=== PATIENT | male | born 1945 | race Caucasian/White ===

== ENCOUNTER 2017-09-18 06:32 | Inpatient (IN) | payer MEDICARE, BC ==
[2017-09-18] MEDS ORDERED: TOBRAMYCIN 1.2 GM POWDER (06:49)
[2017-09-18] MEDS ORDERED: METOCLOPRAMIDE 10 MG INJ (07:00)
[2017-09-18] MEDS: GABAPENTIN 300 MG CAP PO ×2 (07:17→21:10)
[2017-09-18] MEDS: traMADol 50 MG TAB PO (07:17)
[2017-09-18] MEDS: DEXAMETHASONE 1 MG TAB PO (07:17)
[2017-09-18] MEDS ORDERED: PROPOFOL 20 ML (08:06)
[2017-09-18] MEDS ORDERED: ROCURONIUM 50 MG INJ (08:06)
[2017-09-18] MEDS ORDERED: CEFAZOLIN 1 GM INJ (08:07)
[2017-09-18] MEDS ORDERED: ROPIVACAINE 0.5 % 30 ML VIAL (08:07)
[2017-09-18] MEDS ORDERED: DEXAMETHASONE 4 MG/ML 1 ML INJ (08:07)
[2017-09-18] MEDS ORDERED: FENTAnyl 50 MCG/ML VIAL (08:07)
[2017-09-18] MEDS ORDERED: KETOROLAC 30 MG INJ (08:07)
[2017-09-18] MEDS ORDERED: MIDAZOLAM 1 MG/ML 2 ML INJ (08:07)
[2017-09-18] MEDS ORDERED: ONDANSETRON 4 MG INJ (08:07)
[2017-09-18] MEDS ORDERED: ACETAMINOPHEN 1000MG/100ML IV 100 ML (08:59)
[2017-09-18] MEDS ORDERED: SUGAMMADEX SODIUM 200 MG/2 ML VIAL IV (08:59)
[2017-09-18] MEDS: POLYMYXIN/BACITRACIN 1L IRRIG (09:12)
[2017-09-18] MEDS: CA CHLORIDE 10% 10 ML SYRINGE (09:12)
[2017-09-18] MEDS: THROMBIN 5000 UNIT VIAL (09:13)
[2017-09-18] MEDS: BUPIVACAINE 0.5%/EPI (SDV) 30 ML INJ INJ (09:13)
[2017-09-18] MEDS: BUPIVACAINE 0.5% (SDV) 30 ML, morphine SULFATE (PF) 8 MG, EPINEPHrine 0.3 MG, KETOROLAC... IRR (09:15)
[2017-09-18] MEDS ORDERED: EPHEDrine SULFATE 50 MG/5 ML SYG IV (09:30)
[2017-09-18] MEDS ORDERED: MEPERIDINE 25 MG INJ IV (09:30)
[2017-09-18] MEDS ORDERED: LABETALOL HCL 20MG INJ IV (09:30)
[2017-09-18] MEDS ORDERED: OXYCODONE/ACETAMINOPHEN (5/325) TAB PO ×2 (09:30)
[2017-09-18] MEDS ORDERED: DIPHENHYDRAMINE 50 MG INJ IV ×2 (09:30→10:30)
[2017-09-18] MEDS ORDERED: METOCLOPRAMIDE 10 MG INJ IV (09:30)
[2017-09-18] MEDS ORDERED: ONDANSETRON 4 MG INJ IV ×2 (09:30→10:30)
[2017-09-18] MEDS ORDERED: hydrALAzine 20 MG INJ IV (09:30)
[2017-09-18] MEDS ORDERED: HYDROmorphONE (0.2 MG/ML) 10ML SYG IV ×3 (09:30)
[2017-09-18] MEDS ORDERED: FENTAnyl 50 MCG/ML VIAL IV ×3 (09:30)
[2017-09-18] MEDS ORDERED: MAGNESIUM HYDROXIDE 30ML CUP PO (10:30)
[2017-09-18] MEDS ORDERED: morphine 2 MG INJ IV ×2 (10:30)
[2017-09-18] MEDS ORDERED: ACETAMINOPHEN 500 MG TAB PO (10:30)
[2017-09-18] MEDS ORDERED: KETOROLAC 15 MG INJ IV (10:30)
[2017-09-18] MEDS ORDERED: ZOLPIDEM 5 MG TAB PO (10:30)
[2017-09-18] MEDS: TRANEXAMIC ACID 1,000 MG in DEXTROSE 5% 100 ML IV (11:12)
[2017-09-18] MEDS: CEFAZOLIN 1 GM/50 ML (PMX) 50 ML IVPB ×3 (11:14→17:40)
[2017-09-18] MEDS: CEFAZOLIN 2 GM/50 ML (PMX) 50 ML IVPB (11:14)
[2017-09-18] MEDS: TRANEXAMIC ACID 1,000 MG in DEXTROSE 5% 100 ML IVPB (12:29)
[2017-09-18] MEDS: DEXAMETHASONE 2 MG TAB PO ×2 (13:25→17:39)
[2017-09-19] MEDS: DEXAMETHASONE 2 MG TAB PO ×2 (00:05→06:42)
[2017-09-19] MEDS: SENNA/DOCUSATE NA (8.6MG/50MG) TAB PO ×2 (00:05→08:19)
[2017-09-19] MEDS: OXYCODONE/ACETAMINOPHEN (5/325) TAB PO ×2 (03:22→08:21)
[2017-09-19] MEDS: CEFAZOLIN 1 GM/50 ML (PMX) 50 ML IVPB (03:22)
[2017-09-19] MEDS: ASPIRIN 81 MG TAB PO (08:21)
== END 2017-09-19 09:56 | disposition home or self-care (01) | DRG 483 ==
LOC: REC 06:32 → MS1 13:44
PROC: 0RRJ0JZ Replacement of Right Shoulder Joint with Synthetic Substitute, Open Approach (ICD-10-PCS; principal; 2017-09-18 08:29)
DX: M19.011 Primary osteoarthritis, right shoulder (principal)
CPT/HCPCS: 73030-RT; 88304; 88311; 97165